=== PATIENT | female | born 1970 | race American Indian/Alaskan Native ===

== ENCOUNTER 2021-11-23 15:04 | Emergency (ER) | payer BC, OTHER ==
[2021-11-23] MEDS ORDERED: ONDANSETRON 4 MG/2 ML INJ IV ONE (18:19)
[2021-11-23] MEDS ORDERED: KETOROLAC 30 MG/1 ML INJ IV ONE (18:19)
[2021-11-23] MEDS ORDERED: diazePAM 5 MG TAB PO ONE (18:20)
--- NOTE | 2021-11-23 18:48 | XRay Report ---
CHEST 1 VIEW 11/23/2021 6:26 PM INDICATION / CLINICAL INFORMATION: cough. COMPARISON: None available. FINDINGS: SUPPORT DEVICES: None. HEART / MEDIASTINUM: No significant abnormality. LUNGS / PLEURA: No significant pulmonary or pleural abnormality. No pneumothorax. ADDITIONAL FINDINGS: No significant additional findings. IMPRESSION: 1. No acute findings. Signer Name: Tramaine Chaudhary MD Signed: 11/23/2021 6:44 PM Workstation Name: [id number]
[2021-11-23 19:03] LABS: Bilirubin,Urine NEG (Negative); Blood,Urine SM (Negative); Color,Urine Yellow (Yellow); Protein,Urine <15 mg/dL mg/dL (Negative)
[2021-11-23 19:11] LABS: Bacteria,Urine 1+ /HPF (Negative); Mucus,Urine FEW /HPF
[2021-11-23 19:23] LABS: Basophils # (Auto) 0.1 K/mm3 (0.0-0.1); Basophils % (Auto) 1.4 % (0.0-1.8); Eosinophils # (Auto) 0.3 K/mm3 (0.0-0.4); Hematocrit 40.7 % (30.3-42.9); Hemoglobin 13.1 gm/dl (10.1-14.3); Lymphocytes % (Auto) 33.8 % (13.4-35.0); Mean Corpuscular HGB Conc 32 % (30-34); Mean Corpuscular Volume 90 fl (79-97); Monocytes # (Auto) 0.8 K/mm3 (0.0-0.8); Monocytes % (Auto) 8.6 % (0.0-7.3); Platelet Count 342 K/mm3 (140-440); Red Blood Count 4.52 M/mm3 (3.65-5.03)
[2021-11-23 19:44] LABS: Alanine Aminotransferase 15 units/L (7-56); Albumin 3.8 g/dL (3.9-5); Blood Urea Nitrogen 15 mg/dL (7-17); Calcium 9.3 mg/dL (8.4-10.2); Hemolysis Index 7
[2021-11-23 19:45] LABS: BUN/Creatinine Ratio 21
--- NOTE | 2021-11-23 20:30 | Emergency Department Report ---
ED General Adult HPI - General Chief complaint: Weakness Stated complaint: WEAKNESS, EXTREAME PAIN Source: patient Mode of arrival: Ambulatory Limitations: No Limitations - History of Present Illness Initial comments: Patient is a 51-year-old -Stateless female with a history of fibromyalgia who presents to the ED with complaint of generalized fatigue and weakness and body aches and pains for the last 1 week. Patient states that the symptoms have worsened in the last 3 days. 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 Patient denies chest pain, shortness of breath, fever, chills, nausea and vomiting, diarrhea, abdominal pain, back pain, traumatic injury, headache, Sinus congestion or sore throat, dysuria, urinary frequency and urgency, fall, traumatic injury or heavy lifting. MD Complaint: Diffuse body aches and pains, generalized weakness and fatigue -: Sudden, week(s) (1) Location: upper extremity, lower extremity Radiation: non-radiation Severity scale (0 -10): 10 Quality: aching, sharp Consistency: constant Improves with: none Worsens with: none Associated Symptoms: denies other symptoms. denies: confusion, chest pain, cough, fever/chills, malaise, nausea/vomiting, rash, seizure, shortness of breath, syncope, weakness, other Treatments Prior to Arrival: none - Related Data Home Medications Medication Instructions Recorded Confirmed Last Taken Pravastatin [Pravachol] 40 mg PO QHS 11/06/14 01/03/15 12/20/14 21:30 lisinopriL [Zestril TAB] 20 mg PO QDAY 11/06/14 01/03/15 01/02/15 21:00 20 mg Famotidine [Pepcid] 20 mg PO BID 01/03/15 01/03/15 Unknown Previous Rx's Medication Instructions Recorded Last Taken Type Docusate Sodium [Colace ORAL LIQ] 100 mg PO BID #1 oralsyr 01/04/15 Unknown Rx Amitriptyline [Elavil] 50 mg PO QHS #60 tab 11/23/21 Unknown Rx Carisoprodol [Soma] 350 mg PO Q8H PRN #30 tab 11/23/21 Unknown Rx Ibuprofen [Motrin] 800 mg PO Q8HR PRN #30 tablet 11/23/21 Unknown Rx Allergies Allergy/AdvReac Type Severity Reaction Status Date / Time No Known Allergies Allergy Verified 01/03/15 19:29 ED Review of Systems ROS: Stated complaint: WEAKNESS, EXTREAME PAIN Other details as noted in HPI Constitutional: denies: chills, fever Eyes: denies: eye pain, eye discharge, vision change ENT: denies: ear pain, throat pain Respiratory: denies: cough, shortness of breath, wheezing Cardiovascular: denies: chest pain, palpitations Endocrine: no symptoms reported Gastrointestinal: denies: abdominal pain, nausea, vomiting, diarrhea Genitourinary: denies: urgency, dysuria, discharge Musculoskeletal: back pain, arthralgia, myalgia. denies: joint swelling Skin: denies: rash, lesions Neurological: denies: headache, weakness, paresthesias Psychiatric: denies: anxiety, depression Hematological/Lymphatic: denies: easy bleeding, easy bruising ED Past Medical Hx - Past Medical History Previous Medical History?: Yes Hx Hypertension: Yes Hx Diabetes: Yes Additional medical history: high cholestrol, Fibromyalgia - Surgical History Past Surgical History?: Yes Hx Cholecystectomy: Yes (1999) Additional Surgical History: Gastric sleeve 12/21. - Social History Smoking Status: Never Smoker - Medications Home Medications: Home Medications Medication Instructions Recorded Confirmed Last Taken Type Pravastatin [Pravachol] 40 mg PO QHS 11/06/14 01/03/15 12/20/14 21:30 History lisinopriL [Zestril TAB] 20 mg PO QDAY 11/06/14 01/03/15 01/02/15 21:00 History 20 mg Famotidine [Pepcid] 20 mg PO BID 01/03/15 01/03/15 Unknown History Docusate Sodium [Colace ORAL LIQ] 100 mg PO BID #1 oralsyr 01/04/15 Unknown Rx Amitriptyline [Elavil] 50 mg PO QHS #60 tab 11/23/21 Unknown Rx Carisoprodol [Soma] 350 mg PO Q8H PRN #30 tab 11/23/21 Unknown Rx Ibuprofen [Motrin] 800 mg PO Q8HR PRN #30 tablet 11/23/21 Unknown Rx ED Physical Exam - General Limitations: No Limitations General appearance: alert, in no apparent distress - Head Head exam: Present: atraumatic, normocephalic, normal inspection - Eye Eye exam: Present: normal appearance, PERRL, EOMI - ENT ENT exam: Present: normal exam, normal orophraynx, mucous membranes moist, TM's normal bilaterally, normal external ear exam - Neck Neck exam: Present: normal inspection, full ROM. Absent: tenderness - Respiratory Respiratory exam: Present: normal lung sounds bilaterally. Absent: respiratory distress, wheezes, rales, stridor, chest wall tenderness, prolonged expiratory - Cardiovascular Cardiovascular Exam: Present: normal rhythm, tachycardia, normal heart sounds. Absent: systolic murmur, diastolic murmur, rubs, gallop - GI/Abdominal GI/Abdominal exam: Present: soft, normal bowel sounds. Absent: tenderness, guarding, rebound, hyperactive bowel sounds, hypoactive bowel sounds, organomegaly, mass - Extremities Exam Extremities exam: Present: normal inspection, full ROM, normal capillary refill. Absent: tenderness - Back Exam Back exam: Present: normal inspection, full ROM, tenderness (Palpable lumbosacral paraspinal musculoskeletal tenderness), muscle spasm, paraspinal tenderness. Absent: CVA tenderness (L), vertebral tenderness - Neurological Exam Neurological exam: Present: alert, oriented X3, CN II-XII intact, normal gait, reflexes normal - Psychiatric Psychiatric exam: Present: normal affect, normal mood, anxious - Skin Skin exam: Present: warm, dry, intact, normal color. Absent: rash ED Course Vital Signs 11/23/21 15:23 Temperature 98.8 F Pulse Rate 106 H Respiratory 18 Rate Blood Pressure 165/89 O2 Sat by Pulse 97 Oximetry ED Medical Decision Making - Lab Data Result diagrams: 11/23/21 18:38 11/23/21 18:38 - Radiology Data Radiology results: report reviewed, image reviewed [facility] [address] [place] [address] XRay Report Signed Patient: YAN BERKOWITZ MR#: [id number] : 1970 Acct:[id number] Age/Sex: 51 / F ADM Date: 11/23/21 Loc: ED Attending Dr: Ordering Physician: MARYJANE MCDOWELL Date of Service: 11/23/21 Procedure(s): XR chest 1V ap Accession Number(s): [id number] cc: MARYJANE MCDOWELL Fluoro Time In Minutes: CHEST 1 VIEW 11/23/2021 6:26 PM INDICATION / CLINICAL INFORMATION: cough. COMPARISON: None available. FINDINGS: SUPPORT DEVICES: None. HEART / MEDIASTINUM: No significant abnormality. LUNGS / PLEURA: No significant pulmonary or pleural abnormality. No pneumothorax. ADDITIONAL FINDINGS: No significant additional findings. IMPRESSION: 1. No acute findings. Signer Name: Tramaine Chaudhary MD Signed: 11/23/2021 6:44 PM Workstation Name: [id number] Transcribed By: EDGAR Dictated By: Tramaine Chaudhary MD Electronically Authenticated By: Tramaine Chaudhary MD Signed Date/Time: 11/23/211843 DD/ 42 TD/TT: Print Cancel - Medical Decision Making This is a 51-year-old -Stateless female with a history of fibromyalgia who presents to the ED with complaint of generalized fatigue and weakness and body aches and pains for the last 1 week. Patient states that the symptoms have worsened in the last 3 days. 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 In the ED, patient is alert and oriented x3 and is not in any distress. Patient was treated for pain in the ED. All lab test results were reviewed and are all nonactionable. Chest x-ray showed no acute cardiopulmonary abnormalities or pneumonitis. On reevaluation, patient's pain is well controlled medication. Patient will discharge home on medications and advised to follow-up with her primary care physician in 5 to 7 days for reevaluation or return to the ED immediately if symptoms get worse. - Differential Diagnosis Pneumonia; UTI; chronic pain; muscle spasm; Critical care attestation.: If time is entered above; I have spent that time in minutes in the direct care of this critically ill patient, excluding procedure time. ED Disposition Clinical Impression: Chronic pain syndrome, Spasm of muscle of lower back Disposition: HOME / SELF CARE / HOMELESS Is pt being admited?: No Does the pt Need Aspirin: No Condition: Stable Instructions: Muscle Cramps and Spasms, [id number], Chronic Pain, Adult Additional Instructions: All lab test results were reviewed and are all nonactionable. Chest x-ray showed no acute cardiopulmonary abnormalities or pneumonitis. Therefore take medication with food, drink plenty of fluids and follow-up with your primary care physician in 7 to 10 days for reevaluation. Return to the ED immediately if symptoms get worse. Prescriptions: Amitriptyline [Elavil] 50 mg PO QHS #60 tab Ibuprofen [Motrin] 800 mg PO Q8HR PRN #30 tablet PRN Reason: Pain , Severe (7-10) Carisoprodol [Soma] 350 mg PO Q8H PRN #30 tab PRN Reason: Muscle Spasm Referrals: [facility] [Provider Group] - 3-5 Days Time of Disposition: 20:33 Print Language: SLOVAK
[2021-11-23 20:59] VITALS: BP 133/77
== END 2021-11-23 21:29 | disposition home or self-care (01) ==
LOC: ED 15:04
DX: G89.4 Chronic pain syndrome (principal); M62.830 Muscle spasm of back; I10 Essential (primary) hypertension; E11.9 Type 2 diabetes mellitus without complications; Z90.49 Acquired absence of other specified parts of digestive tract; Z79.899 Other long term (current) drug therapy
CPT/HCPCS: 36415; 71045; 80053; 81001; 85025; 96374; 96375; 99284; J2405